=== PATIENT | male | born 1995 | race African-American/Black ===

== ENCOUNTER 2017-12-12 18:50 | Emergency (ER) | payer OTHER ==
[~2017-12-12] VITALS: Ht 182.9 cm; Wt 67.1 kg
[2017-12-12] MEDS ORDERED: ERYTHROMYCIN E3.5 G3 OPHTHALMIC (21:40)
[2017-12-12] MEDS ORDERED: IBUPROFEN 600600 M1 PO (21:40)
[2017-12-12] MEDS ORDERED: HYDROCODONE-AP1 EAC6 PO (21:40)
[2017-12-12 21:47] VITALS: BP 112/74
== END 2017-12-12 21:50 | disposition home or self-care (01) ==
LOC: ER 18:50
DX: H20.9 Unspecified iridocyclitis (principal)